=== PATIENT | female | born 1985 | race Caucasian/White ===

== ENCOUNTER 2021-02-02 13:28 | Emergency (ER) | payer BC ==
[~2021-02-02] VITALS: Ht 165.1 cm; Wt 77.1 kg
[2021-02-02] MEDS ORDERED: DIVALPROEX SOD500 M1 PO (13:41)
[2021-02-02] MEDS ORDERED: ELEPSIA XR1500 MG PO (13:42)
[2021-02-02] MEDS ORDERED: CALCIUM500 MG PO (13:43)
[2021-02-02] MEDS ORDERED: VITAMIN D3250 MC1 PO (13:43)
[2021-02-02] MEDS ORDERED: CETIRIZINE HCL10 M1 PO (13:43)
[2021-02-02] MEDS ORDERED: FOLIC ACID1 MG PO (13:44)
[2021-02-02] MEDS ORDERED: ENBRACE HR SOF1 EACH PO (13:44)
[2021-02-02] MEDS ORDERED: SINGULAIR 10 MG10 MG PO (13:45)
[2021-02-02] MEDS ORDERED: ESTRADIOL 1 MG T1 M1 PO (13:45)
[2021-02-02] MEDS ORDERED: PREDNISONE 20 M20 M1 PO (14:16)
[2021-02-02] MEDS ORDERED: PROMETHAZI6.25 MG/5 PO (14:16)
[2021-02-02] MEDS ORDERED: TESSALON PERLE100 MG PO (14:16)
[2021-02-02 15:30] VITALS: BP 121/72
== END 2021-02-02 15:30 | disposition home or self-care (01) ==
LOC: M.ERS 13:28
DX: J20.9 Acute bronchitis, unspecified (principal); Z20.822 Contact with and (suspected) exposure to COVID-19; J45.909 Unspecified asthma, uncomplicated; Z88.6 Allergy status to analgesic agent; Z88.1 Allergy status to other antibiotic agents; Z90.710 Acquired absence of both cervix and uterus